=== PATIENT | female | born 1990 | race Caucasian/White ===

== ENCOUNTER 2019-03-27 20:20 | Emergency (ER) | payer OTHER, SELFPAY ==
[2019-03-27 20:21] VITALS: BP 126/81; RESP 18; TEMP 39; O2SAT 100
--- NOTE | 2019-03-27 20:35 | ECG_ITS ---
Measurements Intervals [place] Rate: 105 P: 53 KS: 150 QRS: 40 QRSD: 88 T: 33 QT: 298 QTc: 395 Interpretive Statements SINUS TACHYCARDIA NONSPECIFIC T-WAVE ABNORMALITY- INFERIOR LEADS ABNORMAL ECG Electronically Signed On 03-27-2019 20:51:46 [employer] by Naveen Eng D.O.
--- NOTE | 2019-03-27 20:46 | ED.SYNCOPE ---
HPI - Syncope General Chief Complaint: Syncope Stated Complaint: weak Time Seen by Provider: 03/27/19 20:30 Source: patient and RN notes reviewed Mode of arrival: EMS Limitations: no limitations History of Present Illness HPI narrative: Pt is a 28 y/o female who presents to the ED via EMS with c/o syncopal episode happening this evening. She notes that she developed flu-like symptoms including a fever and body aches yesterday. Pt states that she briefly lost consciousness for several seconds while being evaluated at an urgent care facility this evening. She denies any head injury during the episode. Pt also denies any vomiting, diarrhea, ABD pain, CP, or SOB. MD complaint: loss of consciousness Prodromal symptoms: none Context: recent illness Injuries sustained associated with event: none Current symptoms: fever and other (body aches) Related Data Allergies Allergy/AdvReac Type Severity Reaction Status Date / Time No Known Drug Allergies Allergy Unknown Unknown Verified 03/27/19 20:57 Review of Systems Review of Systems: All systems reviewed & are unremarkable except as noted in HPI and below Constitutional: Constitutional: Reports body ache(s) and Reports fever(s) Cardiovascular: Cardiovascular: Denies chest pain Respiratory: Respiratory: Denies dyspnea Gastrointestinal: Gastrointestinal: Denies abdominal pain, Denies diarrhea and Denies vomiting Neurologic: Reports syncope and Denies other (head injury) [facility] Past Medical History Medical History Seasonal allergies Surgical History Surgical History No significant past surgical history Social History Social History Smoking status: Never smoker Gender identity (if verbalized by the patient): Female Exam Const: General: cooperative, healthy appearing, comfortable, no acute distress, well developed, alert and awake; No confusion Orientation/consciousness: oriented to person, oriented to place, oriented to time, patient oriented x3 and No confusion Limitations: no limitations HENMT: Head: normal to inspection, normocephalic and atraumatic Neck: Neck: normal visual inspection, full ROM, no lymphadenopathy and no meningeal signs Chest: Chest palpation & inspection: normal inspection of the chest Resp: Effort & Inspection: normal respiratory effort, able to speak in complete sentences, no respiratory distress and not tachypneic Auscultation: clear to auscultation bilaterally, no crackles, no rales, no rhonchi and no wheezes Cardio: Rate: tachycardic Rhythm: regular rhythm GI: Inspection: normal to inspection GI Palp: No abdominal tenderness, Yes Soft to palpation, No Tenderness to palpation present (GI), No Guarding due to palpation present (GI), No Rigid due to palpation and No Rebound tenderness present Auscultation: normal bowel sounds Skin: General skin exam: normal color, no rashes or lesions noted, elasticity normal and turgor normal Neuro: General: oriented to person, oriented to place, oriented to time, patient oriented x3, tone normal, moves all extremities, Normal light touch and pain sensation, no meningeal signs, no focal motor deficits, CN's II-XI intact bilaterally and No confusion Cranial nerves: Yes Equal, round and reactive pupils present Speech: No Abnormal speech present Sensory Exam: No Sensory deficit (Neuro) Extrem: General: normal to inspection, full ROM and capillary refill normal Psych: Appearance: grossly normal and well kempt Mental Status: mental status grossly normal Speech and movement: Normal speech and movement present Affect: normal affect Attitude: cooperative Thought process: Normal thought process present Thought content: Yes Normal thought content present Insight: Good insight present (Psych) Judgement: Good judgement present (Psych) Course Course Emergency Course:
[2019-03-27 20:47] VITALS: PULSE 125
[2019-03-27 20:56] LABS: Basophils Percent Auto 0.3 % (0.2-1.2); Hematocrit 39.4 % (37.0-47.0); Hemoglobin 13.3 g/dL (12.0-15.0); Immature Granulocyte Absolute 0.01 K/mm3 (0.00-0.031); Immature Granulocyte Percent A 0.3 % (0-0.5); Lymphocytes Absolute Auto 0.39 K/mm3 (0.9-3.2); Lymphocytes Percent Auto 11.6 % (18.3-44.2); Mean Corpuscular HGB Conc 33.8 g/dl (32-36); Mean Corpuscular Hemoglobin 30.5 pg (26-34); Mean Corpuscular Volume 90.4 fl (80-100); Mean Platelet Volume 11.5 fl (7.4-10.4); Monocytes Absolute Auto 0.4 K/mm3 (0.1-0.6); Monocytes Percent Auto 11.3 % (2.6-8.5); Neutrophils Absolute Auto 2.6 K/mm3 (1.3-6.7); Neutrophils Percent Auto 76.5 % (45.5-73.1); Platelet Count Result 157 k/mm3 (150-375); Red Blood Count 4.36 M/mm3 (4.2-5.4); White Blood Count 3.4 K/mm3 (4.5-10.0)
[2019-03-27] MEDS: ACETAMINOPHEN 500 MG TABLET 1000 MG PO (20:57)
[2019-03-27] MEDS: SODIUM CHLORIDE 0.9% IV 1,000 ML 999 ML IV CONT (20:58)
[2019-03-27 21:07] LABS: Blood Urea Nitrogen 10 mg/dL (7-17); Calcium 9.3 mg/dL (8.4-10.2); Carbon Dioxide 20 mmol/L (22-30); Chloride 102 mmol/L (98-107); Estimated CRCL calculation 111 ml/min; Estimated Glomerular Filt Rate > 60; Glucose 109 mg/dL (65-105); Potassium 3.7 mmol/L (3.4-5.0); Sodium 137 mmol/L (137-145)
[2019-03-27 21:27] VITALS: TEMP 38.2
[2019-03-27 21:56] VITALS: BP 131/84; PULSE 111; RESP 20; TEMP 38.3; O2SAT 98
[2019-03-27] MEDS: OSELTAMIVIR PHOSPHATE 75 MG CAP PO (22:15)
[2019-03-27 22:54] VITALS: BP 128/76; PULSE 100; RESP 20; TEMP 38.2; O2SAT 99
== END 2019-03-27 22:57 | disposition home or self-care (01) ==
PROVIDERS: Emergency Provider Emergency Medicine
DX: R55 Syncope and collapse (principal); J10.1 Influenza due to other identified influenza virus with other respiratory manifestations; R00.0 Tachycardia, unspecified
CPT/HCPCS: 36415; 80048; 85025; 87804; 93005; 96360; 99283; A9270; J7030

== ENCOUNTER 2019-03-29 18:22 | Emergency (ER) | payer OTHER, SELFPAY ==
[2019-03-29 18:53] VITALS: BP 118/68; PULSE 109; RESP 18; TEMP 37.1; O2SAT 100
--- NOTE | 2019-03-29 20:06 | ED.URI ---
HPI - URI/Sore Throat General Chief Complaint: Upper Respiratory Infection Stated Complaint: SORE THROAT Time Seen by Provider: 03/29/19 19:52 Source: patient Mode of arrival: ambulatory Limitations: no limitations History of Present Illness HPI Narrative: 28-year-old female presents for evaluation of illness that is been present for 4 days. 2 days ago, she went to the ER and was diagnosed with influenza B. She was given Tamiflu and ibuprofen for her symptoms. She is reporting symptoms of congestion, facial pressure, cough, body aches, fever, sore throat. 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 Did not do a strep swab in the ER. She reports decrease in appetite, normal drinking, normal urine output. Related Data Home Medications Medication Instructions Recorded Confirmed ibuprofen 200 mg PO Q6H PRN 03/29/19 03/29/19 Allergies Allergy/AdvReac Type Severity Reaction Status Date / Time No Known Drug Allergies Allergy Unknown Unknown Verified 03/29/19 19:00 Review of Systems Review of Systems: Narrative: CONSTITUTIONAL: Reports fever, chills, sweats. EYES: Denies visual changes, redness, or discharge. ENT: Reports rhinorrhea, congestion, sore throat.denies otalgia. CARDIOVASCULAR: Denies chest pain, palpitations, or edema. RESPIRATORY: Denies dyspnea. Reports cough GASTROINTESTINAL: Denies abdominal pain, nausea, vomiting, or diarrhea. SKIN: Denies rash or itching. MUSCULOSKELETAL: Denies back pain, joint pain, swelling. Reports myalgias NEUROLOGIC: Denies headache, numbness, or weakness. All systems reviewed & are unremarkable except as noted in HPI and below PMFSH Social History Social History Smoking status: Never smoker Gender identity (if verbalized by the patient): Female Comments At the time of my signature, I agree with nursing past medical, surgical, social and family history. There is no relevant family history pertinent to the presenting complaint. Exam Narrative: Exam Narrative: GENERAL: No distress, well appearing, well nourished, alert and calm HEAD: Normocephalic, atraumatic. Mild maxillary sinus tenderness noted EYES: Pupils equal, round. Extraocular movements intact. Conjunctivae without redness or drainage. EARS: Tympanic membranes without erythema. TM landmarks intact with good light reflex. Ear canals without discharge. NOSE: Nares patent. Nasal turbinates noninflamed. No nasal discharge MOUTH: Mucous membranes moist. No lesions. No cyanosis. Dentition grossly normal. THROAT: Oropharynx with mild erythema. No exudates or lesions. Tonsils not enlarged. NECK: Supple. No lymphadenopathy. RESPIRATORY: Airway patent. Chest clear to auscultation bilaterally. Breath sounds equal bilaterally. No retractions. CARDIOVASCULAR: Regular rate and rhythm. No murmurs, rubs, gallops, or clicks. Capillary refill <2 seconds. MUSCULOSKELETAL: Range of motion grossly normal in all four extremities. Strength grossly normal in all four extremities. No edema. No swelling SKIN: Color normal. Warm and dry. No rashes. Course Vital Signs Vital signs: Vital Signs Temperature 98.7 F 03/29/19 18:53 Pulse Rate 109 H 03/29/19 18:53 Respiratory Rate 18 03/29/19 18:53 Blood Pressure 118/68 03/29/19 18:53 Pulse Oximetry 100 03/29/19 18:53 Temperature 98.7 F 03/29/19 18:53 Pulse Rate 109 H 03/29/19 18:53 Respiratory Rate 18 03/29/19 18:53 Blood Pressure 118/68 03/29/19 18:53 Pulse Oximetry 100 03/29/19 18:53 Reviewed MDM - URI/Sore Throat MDM Narrative Medical decision making narrative: Patient is in no acute distress and is non toxic appearing. Vital signs stable. No acute respiratory distress, well hydrated. Patient has already been diagnosed with influenza B. Her strep swab today was negative, will send for culture. Patient symptoms are still residual from influenza B.
== END 2019-03-29 20:10 | disposition home or self-care (01) ==
PROVIDERS: Emergency Provider Nurse Practitioner
DX: J11.1 Influenza due to unidentified influenza virus with other respiratory manifestations (principal)
CPT/HCPCS: 87081; 87880; 99213; G0463

== ENCOUNTER 2022-12-14 18:49 | Emergency (ER) | payer OTHER, SELFPAY ==
--- NOTE | ~2022-12-14 | XR_ITS ---
EXAM: XR shoulder RT min 2V, XR clavicle RT DATE: 12/14/2022 19:14 HISTORY: shoulder pain after injury . COMPARISON: None available. FINDINGS: Normal mineralization. No fracture or dislocation. No lytic or blastic lesion. Joint space s are maintained. No erosion or periosteal change. Soft tissues within normal limits. IMPRESSION: No acute osseous finding in the right shoulder or right clavicle. Reviewed, dictated and finalized at location K. N[facility] CARETAKER IMPRESSION: No acute osseous finding in the right shoulder or right clavicle.
--- NOTE | 2022-12-14 19:00 | ED.UPPEXIN ---
HPI - Extremity Injury (Upper) General Chief Complaint: Extremity Injury, Upper Stated Complaint: Shoulder pain Time Seen by Provider: 12/14/22 19:00 Source: patient Mode of arrival: ambulatory Limitations: no limitations History of Present Illness HPI narrative: Darline is a 32-year-old female patient presenting to the clinic today with complaints of shoulder pain x1 week. 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 Is having pain with raising her arm above her head as well as pain over her right clavicle. Related Data Home Medications Medication Instructions Recorded Confirmed No Home Medications 12/14/22 12/14/22 Allergies Allergy/AdvReac Type Severity Reaction Status Date / Time No Known Drug Allergies Allergy Unknown Unknown Verified 12/14/22 19:02 Review of Systems Review of Systems: Pertinent positives per HPI. Patient denies any fever, chills, rash, headache, visual changes, dizziness, cough, runny nose, sore throat, shortness of breath, chest pain, palpitations, nausea, vomiting, diarrhea, constipation, abdominal pain, or any urinary issues. ON LICENSE OF [facility] Past Medical History Medical History Seasonal allergies Surgical History Surgical History No significant past surgical history Social History Social History Smoking status: Never smoker Gender identity (if verbalized by the patient): Female Comments At the time of my signature, I reviewed and agree with the nursing past medical, surgical, social, and family history. There is no relevant family history pertinent to the patient complaint. Exam Narrative: General: Well-developed, well nourished, in no apparent distress Head: Normocephalic, atraumatic. Cardio: Regular rate and rhythm, s1 and s2 normal, no murmur appreciated. Resp: Clear to auscultation bilaterally, no rhonchi, rales, wheezing or rubs. Musculoskeletal: No step-off deformity, tender to palpation over the right clavicle, anterior shoulder, and posterior shoulder, limited range of motion due to pain, pain with resistance with empty can and full can, negative arm drop test, positive cross-arm test, muscle strength strong and equal, peripheral pulse strong, no edema, no cyanosis, normal gait and station Course Course Emergency Course: Portions of this record may have been created with voice recognition software. Level of Care: Express Care Visit Vital Signs Vital signs: Vital signs reviewed MDM - Extremity Injury (Upper) MDM Narrative Medical decision making narrative: At the time of visit patient is resting comfortably on the exam table. X-ray of the right shoulder and clavicle was performed and was negative for any sign of fracture or malalignment. I suspect that patient has right shoulder strain. Supportive measures were discussed with the patient she voiced understanding discharge instructions and agrees to treatment plan. Arm sling was given. Differential Diagnosis Differential diagnosis: Likely dislocation of shoulder, fracture of clavicle and other (Shoulder sprain, humerus fracture, rotator cuff tear/injury) Imaging Data Radiologist's impression: ITS Impressions Clavicle X-Ray 12/14/22 19:18 IMPRESSION: No acute osseous finding in the right shoulder or right clavicle. Shoulder X-Ray 12/14/22 19:18 IMPRESSION: No acute osseous finding in the right shoulder or right clavicle. Discharge Plan Discharge Clinical Impression: Sprain of right shoulder Qualifiers: Encounter type: initial encounter Shoulder sprain type: unspecified sprain Qualified Code(s): S43.401A - Unspecified sprain of right shoulder joint, initial encounter Patient Disposition:
[2022-12-14 19:01] VITALS: BP 122/82; PULSE 81; RESP 16; TEMP 37.2; O2SAT 100
== END 2022-12-14 19:30 | disposition home or self-care (01) ==
PROVIDERS: Emergency Provider Nurse Practitioner Family
DX: S43.401A Unspecified sprain of right shoulder joint, initial encounter (principal); W50.0XXA Accidental hit or strike by another person, initial encounter; Y93.45 Activity, cheerleading; Y99.0 Civilian activity done for income or pay
CPT/HCPCS: 73000; 73030; 99203; A4565; G0463